=== PATIENT | female | born 1970 | race Hispanic/Latino ===

== ENCOUNTER → 2019-05-04 | Day surgery (SDC) | payer OTHER ==
[~2019-05-04] MED LIST: BUPIVACAINE 0.25%/EPI 30ML SDV INJ ONE; CEFAZOLIN SOD 1 GM VIAL ONE; DEXAMETHASONE SOD PHOS INJ 4 MG/ML VIAL ONE; DICYCLOMINE HCL20 MG PO; FENTANYL CITRATE/PF 100MCG/2 ML INJ ONE; GLYCOPYRROLATE INJ 1MG/ 5 ML SYR ONE; HYDRALAZINE HCL 20 MG/ML VIAL ONE; HYDROMORPHONE 2MG/ML 2 MG/ML ML ONE; KETOROLAC TROMETHAMINE 30 MG/ML VIAL ONE; LEVAQUIN500 MG PO; LIDOCAINE HCL 2% LOCAL INJ 5 ML SDV VIAL INJ ONE; MIDAZOLAM HCL 2 MG/2 ML VIAL ONE; NEOSTIGMINE 5 MG/5ML SYR ONE; OMEPRAZOLE40 MG PO; ONDANSETRON HCL INJ 2MG/ML 2ML 2 MG/ML VIAL ONE; PROPOFOL IV EMULSION 10 MG/ML 20 ML VIAL ONE; ROCURONIUM BROMIDE 10 MG/ML 5ML VIAL ONE; SEVOFLURANE INHAL SOLN 250 ML PEN BTL ONE
--- NOTE | 2019-05-04 15:39 | Operative Report ---
DATE OF PROCEDURE: 05/04/2019 SURGEON: Blake De Luna MD PREOPERATIVE DIAGNOSES: Cholelithiasis, cholecystitis. POSTOPERATIVE DIAGNOSES: Cholelithiasis, cholecystitis. PROCEDURE PERFORMED: Laparoscopic cholecystectomy. ANESTHESIA: General endotracheal. STUMMEL SELECTOR: MADI Alvarado ESTIMATED BLOOD LOSS: Minimal. DRAINS: None. COMPLICATIONS: None. INDICATIONS AND FINDINGS: A 49-year-old female, who had been complaining of right upper quadrant pain radiated to the back for two weeks, associated with nausea, vomiting. The pain was aggravated by greasy food. She had ultrasound of the gallbladder that revealed gallstones and normal common bile duct and there was no history of jaundice. INTRAOPERATIVE FINDINGS: The patient had gallstones and thickening of the wall. There was no ductal dilatation. It was consistent with chronic cholecystitis. There were adhesions in the area inferior to the umbilicus from previous C-sections. DESCRIPTION OF PROCEDURE: With the patient lying on the operative table in the supine position, after administration of general anesthesia, she was prepped and draped for laparoscopic cholecystectomy. The procedure was begun by establishing the pneumoperitoneum in the right upper quadrant, midclavicular line because of previous pelvic surgery. Pneumoperitoneum was insufflated to 15 mm of pressure. Then, the 5 mm trocar placed. Under direct vision with the camera, we placed a 5 mm subxiphoid port and then we lysed the adhesions in the infraumbilical area to prevent internal herniation, these were mainly in the omentum. After we did that, we finally placed the right anterior axillary line trocar and then retracted the gallbladder cephalad using grasping forceps through the two 5 mm trocar. Dissection began in the neck of the gallbladder with some degree of thickening and fibrosis in that area consistent with chronic inflammation. We were able to identify the cystic duct and the junction with the common bile seen 360 degrees circumferentially. We also identified the cystic artery and a plate of the liver. At this point, we transected the cystic duct distally three times once proximally and then the cystic artery was transected between titanium clips also. We then took the gallbladder down using electrocautery dissection. We removed the gallbladder, placed it in an endobag and extracted through the umbilical port. After we did that, we inspected the operative field. There was no bile leak, no bleeding, no apparent bowel injury. Then, we released the pneumoperitoneum, closed the wound using 0-Vicryl for the umbilical fascia and 3-0 Vicryl for the subcutaneous tissue in that location as well as the subxiphoid port and the skin of all the ports were closed with sumanth. 0.25% Marcaine with epinephrine was given as local block at the end of the case. The patient tolerated the procedure well, was taken to the recovery room in stable condition. MD KATIE Jones/ELIESER /[id number]
[2019-05-04 16:05] VITALS: BP 139/75
== END | disposition home or self-care (01) ==
LOC: OR 08:59
PROVIDERS: ATTEND Surgery
DX: K80.10 Calculus of gallbladder with chronic cholecystitis without obstruction (principal); K21.9 Gastro-esophageal reflux disease without esophagitis; Z01.810 Encounter for preprocedural cardiovascular examination
CPT/HCPCS: 47562; 81025; 88304; 93005; C1766; J0360; J0690; J1100; J1170; J1885; J2001; J2250; J2405; J2704; J3010; J3490

== ENCOUNTER → 2021-10-29 | Day surgery (SDC) | payer BC ==
[~2021-10-29] MED LIST changes: +AMLODIPINE BES2.5 MG; -BUPIVACAINE 0.25%/EPI 30ML SDV INJ ONE; +CALCIUM; -CEFAZOLIN SOD 1 GM VIAL ONE; -DEXAMETHASONE SOD PHOS INJ 4 MG/ML VIAL ONE; -FENTANYL CITRATE/PF 100MCG/2 ML INJ ONE; -GLYCOPYRROLATE INJ 1MG/ 5 ML SYR ONE; -HYDRALAZINE HCL 20 MG/ML VIAL ONE; -HYDROMORPHONE 2MG/ML 2 MG/ML ML ONE; -KETOROLAC TROMETHAMINE 30 MG/ML VIAL ONE; +LOSARTAN POTAS100 MG PO; -MIDAZOLAM HCL 2 MG/2 ML VIAL ONE; -NEOSTIGMINE 5 MG/5ML SYR ONE; -ONDANSETRON HCL INJ 2MG/ML 2ML 2 MG/ML VIAL ONE; +POVIDONE IODINE 0.05% 0.05 % ML PO ONE; -ROCURONIUM BROMIDE 10 MG/ML 5ML VIAL ONE; -SEVOFLURANE INHAL SOLN 250 ML PEN BTL ONE
[2021-10-29 08:15] VITALS: BP 124/74
== END | disposition home or self-care (01) ==
LOC: OR 05:19
PROVIDERS: ATTEND Internal Medicine Gastroenterology
DX: K29.50 Unspecified chronic gastritis without bleeding (principal); K44.9 Diaphragmatic hernia without obstruction or gangrene; B96.81 Helicobacter pylori [H. pylori] as the cause of diseases classified elsewhere; Z71.3 Dietary counseling and surveillance; K76.0 Fatty (change of) liver, not elsewhere classified; E66.3 Overweight; I10 Essential (primary) hypertension; Z01.810 Encounter for preprocedural cardiovascular examination; Z01.812 Encounter for preprocedural laboratory examination; Z20.822 Contact with and (suspected) exposure to COVID-19; Z79.899 Other long term (current) drug therapy; Z68.28 Body mass index [BMI] 28.0-28.9, adult
CPT/HCPCS: 43239; 81025; 93005; J2001; J2704; U0002